=== PATIENT | male | born 1960 | race Caucasian/White ===

== ENCOUNTER 2023-01-01 10:54 | Inpatient (IN) | payer OTHER ==
[~2023-01-01] VITALS: Ht 165.1 cm; Wt 88.5 kg
[2023-01-01 11:20] VITALS: BP 134/83; PULSE 78; RESP 18; TEMP 98.3; O2SAT 97
[2023-01-01 12:21] LABS: BASOPHILS # (AUTO) 0.1 K/uL (0.00-0.22); BASOPHILS % (AUTO) 0.6 % (0.0-2.0); EOSINOPHILS # (AUTO) 0.8 K/uL (0-0.4); EOSINOPHILS % (AUTO) 8.2 % (0.0-4.0); HEMATOCRIT 40.5 % (36-52); HEMOGLOBIN 13.6 g/dL (12.0-18.0); LYMPHOCYTES # (AUTO) 1.8 K/uL (2.0-11.5); LYMPHOCYTES % (AUTO) 18.2 % (20.5-51.1); MEAN CORPUSCULAR HEMOGLOBIN 29 pg (27-31); MEAN CORPUSCULAR HGB CONC 34 g/dL (33-37); MEAN CORPUSCULAR VOLUME 84.6 fL (80-94); MONOCYTES # (AUTO) 0.7 K/uL (0.8-1.0); MONOCYTES % (AUTO) 6.9 % (1.7-9.3); NEUTROPHILS # (AUTO) 6.7 K/uL (1.8-7.7); NEUTROPHILS % (AUTO) 66.1 % (42.2-75.2); PLATELET COUNT (AUTO) 216 K/uL (140-450); RED BLOOD CELL COUNT(AUTO) 4.79 MIL/uL (4.20-6.10); RED CELL DISTRIBUTION WIDTH 14.7 % (11.6-13.7); WHITE BLOOD COUNT (AUTO) 10.1 K/uL (4.8-10.8)
[2023-01-01 12:34] LABS: ALBUMIN 3.4 g/dL (3.4-5.0); ANION GAP 11.8 (8-16); CALCIUM 8.5 mg/dL (8.5-10.1); CARBON DIOXIDE 27.8 mmol/L (21-32); CREATININE 1.2 mg/dL (0.6-1.3); POTASSIUM 3.6 mmol/L (3.5-5.1); TOTAL PROTEIN, SERUM 8.1 g/dL (6.4-8.2)
[2023-01-01 12:42] LABS: INR 1.01 (0.8-1.2); PARTIAL THROMBOPLASTIN TIME 26.4 secs (22-35.6); PROTHROMBIN TIME 10.6 secs (10.8-13.4)
[2023-01-01 14:35] VITALS: O2SAT 97
[2023-01-01] MEDS ORDERED: TICA90TA PO (14:46)
[2023-01-01] MEDS ORDERED: METO25TA PO (14:46)
[2023-01-01] MEDS ORDERED: COMMUNICATION ORDER MC PRN (16:05)
[2023-01-01] MEDS ORDERED: HEPARIN PER PHARMACY MC PRN (18:20)
[2023-01-01] MEDS ORDERED: LORazepam 2 MG/ML VIAL IVP PRN (18:20)
[2023-01-01] MEDS ORDERED: HYDROcodone/APAP 5/325 MG 1 TAB TAB PO PRN (18:20)
[2023-01-01] MEDS ORDERED: ONDANSETRON 4 MG/2 ML VIAL IVP PRN (18:20)
[2023-01-01] MEDS ORDERED: ACETAMINOPHEN 325 MG TAB PO PRN (18:20)
[2023-01-01 20:00] VITALS: BP 123/69; PULSE 69; RESP 18; TEMP 98.3; O2SAT 98
[2023-01-01] MEDS: METOPROLOL 25 MG TAB PO SCH (20:35)
[2023-01-01] MEDS: ENOXAPARIN 100 MG/ML SYR SUBQ SCH (20:36)
[2023-01-01] MEDS ORDERED: TICAGRELOR PO SCH (21:00)
[2023-01-02 04:00] VITALS: BP 121/63; PULSE 82; RESP 18; TEMP 98.6; O2SAT 99
[2023-01-02 06:46] LABS: BASOPHILS # (AUTO) 0.1 K/uL (0.00-0.22); BASOPHILS % (AUTO) 0.5 % (0.0-2.0); EOSINOPHILS # (AUTO) 0.6 K/uL (0-0.4); EOSINOPHILS % (AUTO) 5.6 % (0.0-4.0); HEMATOCRIT 41.3 % (36-52); HEMOGLOBIN 13.9 g/dL (12.0-18.0); LYMPHOCYTES % (AUTO) 17.3 % (20.5-51.1); MEAN CORPUSCULAR HEMOGLOBIN 28 pg (27-31); MEAN CORPUSCULAR HGB CONC 34 g/dL (33-37); MEAN CORPUSCULAR VOLUME 84.5 fL (80-94); MONOCYTES # (AUTO) 0.9 K/uL (0.8-1.0); MONOCYTES % (AUTO) 7.7 % (1.7-9.3); NEUTROPHILS # (AUTO) 7.9 K/uL (1.8-7.7); NEUTROPHILS % (AUTO) 68.9 % (42.2-75.2); PLATELET COUNT (AUTO) 208 K/uL (140-450); RED BLOOD CELL COUNT(AUTO) 4.89 MIL/uL (4.20-6.10); RED CELL DISTRIBUTION WIDTH 14.9 % (11.6-13.7); WHITE BLOOD COUNT (AUTO) 11.4 K/uL (4.8-10.8)
[2023-01-02 07:15] LABS: CALCIUM 8.6 mg/dL (8.5-10.1); CARBON DIOXIDE 27.3 mmol/L (21-32); CREATININE 1.2 mg/dL (0.6-1.3); POTASSIUM 4.3 mmol/L (3.5-5.1)
[2023-01-02 08:00] VITALS: BP 127/71; PULSE 18; PULSE 78; RESP 18; TEMP 97.5; O2SAT 95
[2023-01-02 08:07] VITALS: PULSE 70; RESP 20; O2SAT 100
[2023-01-02] MEDS: METOPROLOL 25 MG TAB PO SCH ×2 (08:30→22:22)
[2023-01-02] MEDS: ENOXAPARIN 100 MG/ML SYR SUBQ SCH ×2 (08:32→22:28)
[2023-01-02 16:00] VITALS: BP 137/79; PULSE 80; RESP 18; TEMP 97.8; O2SAT 97
[2023-01-02 20:00] VITALS: PULSE 90; RESP 18; O2SAT 97
[2023-01-03] VITALS: BP 133/82; PULSE 85; RESP 18; TEMP 98.3; O2SAT 97
[2023-01-03 06:24] LABS: BASOPHILS # (AUTO) 0.1 K/uL (0.00-0.22); BASOPHILS % (AUTO) 0.6 % (0.0-2.0); EOSINOPHILS # (AUTO) 0.3 K/uL (0-0.4); EOSINOPHILS % (AUTO) 2.3 % (0.0-4.0); HEMATOCRIT 42.6 % (36-52); HEMOGLOBIN 14.1 g/dL (12.0-18.0); LYMPHOCYTES % (AUTO) 17.2 % (20.5-51.1); MEAN CORPUSCULAR HEMOGLOBIN 28 pg (27-31); MEAN CORPUSCULAR HGB CONC 33 g/dL (33-37); MEAN CORPUSCULAR VOLUME 84.9 fL (80-94); MONOCYTES # (AUTO) 1.1 K/uL (0.8-1.0); MONOCYTES % (AUTO) 9.3 % (1.7-9.3); NEUTROPHILS # (AUTO) 8.2 K/uL (1.8-7.7); NEUTROPHILS % (AUTO) 70.6 % (42.2-75.2); PLATELET COUNT (AUTO) 226 K/uL (140-450); RED BLOOD CELL COUNT(AUTO) 5.02 MIL/uL (4.20-6.10); RED CELL DISTRIBUTION WIDTH 14.6 % (11.6-13.7); WHITE BLOOD COUNT (AUTO) 11.6 K/uL (4.8-10.8)
[2023-01-03 06:48] LABS: ANION GAP 16.1 (8-16); CALCIUM 8.3 mg/dL (8.5-10.1); CARBON DIOXIDE 23.8 mmol/L (21-32); CREATININE 1.1 mg/dL (0.6-1.3); POTASSIUM 3.9 mmol/L (3.5-5.1)
[2023-01-03 08:00] VITALS: BP 139/86; PULSE 98; RESP 20; TEMP 98; O2SAT 96
[2023-01-03] MEDS ORDERED: APIX5TAB PO (08:30)
[2023-01-03] MEDS: METOPROLOL 25 MG TAB PO SCH (08:44)
[2023-01-03] MEDS: ENOXAPARIN 100 MG/ML SYR SUBQ SCH (08:45)
== END 2023-01-03 13:50 | disposition home or self-care (01) | DRG 299 ==
LOC: MED 10:54 → MMU 14:55 → MTU 16:45
PROVIDERS: ADMIT Preventive Medicine Preventive Medicine/Occupational Environmental Medicine; ATTEND Preventive Medicine Preventive Medicine/Occupational Environmental Medicine
DX: I82.412 Acute embolism and thrombosis of left femoral vein (principal); I26.92 Saddle embolus of pulmonary artery without acute cor pulmonale; I25.10 Atherosclerotic heart disease of native coronary artery without angina pectoris; E11.65 Type 2 diabetes mellitus with hyperglycemia; D72.829 Elevated white blood cell count, unspecified; I10 Essential (primary) hypertension; Z79.01 Long term (current) use of anticoagulants; Z86.718 Personal history of other venous thrombosis and embolism; Z95.5 Presence of coronary angioplasty implant and graft
CPT/HCPCS: 36415; 71045; 71275; 80048; 80053; 85025; 85379; 85610; 85730; 87081; 93005; 93971; 99285; J1650; Q0092; Q9967